=== PATIENT | female | born 1930 | race Caucasian/White ===

== ENCOUNTER 2020-08-15 18:19 | Emergency (ER) | payer MEDICARE, BC | END 2020-08-15 21:17 | LOC: ERS 18:19 | DX: S52.122A Displaced fracture of head of left radius, initial encounter for closed fracture (principal); S52.602A Unspecified fracture of lower end of left ulna, initial encounter for closed fracture; F03.90 Unspecified dementia, unspecified severity, without behavioral disturbance, psychotic disturbance, mood disturbance, and anxiety; M19.90 Unspecified osteoarthritis, unspecified site; W06.XXXA Fall from bed, initial encounter | CPT/HCPCS: 29105; 70450; 72125 ==